=== PATIENT | male | born 1990 | race African-American/Black ===

== ENCOUNTER 2020-09-13 03:01 | Inpatient (IN) | payer SELFPAY ==
[~2020-09-13] VITALS: Ht 177.8 cm; Wt 68.1 kg
[2020-09-13] MEDS ORDERED: SODIUM CHLORIDE 0.9% 1,000 ML IV ONE (03:30)
[2020-09-13] MEDS ORDERED: CALCIUM GLUCONATE 100MG/ML 10ML VIAL IV ONE (03:30)
[2020-09-13 04:14] LABS: BASOPHILS % 0.3 % (0.0-2.0); EOSINOPHILS % 0.2 % (0.0-5.0); HEMATOCRIT. 44.8 % (42.0-52.0); HEMOGLOBIN. 14.4 g/dL (14.0-18.0); LYMPHOCYTES % 13.7 % (20.0-50.0); MEAN CORPUSCULAR HEMOGLOBIN 28.4 pg (28.0-32.0); MEAN CORPUSCULAR VOLUME 88.1 fL (80.0-94.0); NEUTROPHILS % 82.8 % (40.0-76.0); RED BLOOD CELL COUNT 5.08 mill/uL (4.7-6.1); RED CELL DISTRIBUTION WIDTH 13.7 % (11.6-14.6)
[2020-09-13 04:20] LABS: CHLORIDE 103 mEq/L (98-107)
[2020-09-13 04:24] LABS: ETHANOL BLOOD 26 mg/dL
[2020-09-13] MEDS ORDERED: DEXTROSE 50% WATER 50ML SYRINGE IV NR (04:45)
[2020-09-13 05:00] LABS: PLATELET 161 x1000/uL (130-400)
[2020-09-13] MEDS ORDERED: SODIUM CHLORIDE 0.9% 1000ML BAG (SEPSIS BOLUS) IV ONE (05:00)
[2020-09-13] MEDS ORDERED: DEXT 5%/0.9% NACL 1,000 ML IV ONE (05:15)
[2020-09-13] MEDS ORDERED: POTASSIUM CHLORIDE 20MEQ TABLET SR PO NR (06:00)
[2020-09-13 06:03] LABS: CLARITY URINE CLEAR (CLEAR); COLOR URINE YELLOW (YELLOW); KETONES URINE 2+ (NEGATIVE); LEUKOCYTE ESTERASE URINE NEGATIVE (NEGATIVE); NITRITE URINE NEGATIVE (NEGATIVE); OCCULT BLOOD URINE NEGATIVE (NEGATIVE); PROTEIN URINE NEGATIVE (NEGATIVE); SPECIFIC GRAVITY URINE 1.022 (1.005-1.030)
[2020-09-13 06:16] LABS: *AMPHETAMINES SCREEN URINE NEGATIVE (NEGATIVE); *BARBITURATES SCREEN URINE NEGATIVE (NEGATIVE); *BENZODIAZEPINES SCREEN URINE NEGATIVE (NEGATIVE); *COCAINE SCREEN URINE NEGATIVE (NEGATIVE)
[2020-09-13 06:17] LABS: CANNABINOID URINE SCREEN PRESUMTIVE POSITIVE (NEGATIVE); METHADONE URINE SCREEN NEGATIVE (NEGATIVE); OPIATES URINE SCREEN NEGATIVE (NEGATIVE); PHENCYCLIDINE URINE SCREEN NEGATIVE (NEGATIVE)
[2020-09-13] MEDS ORDERED: DOCUSATE SODIUM 100MG CAPSULE PO PRN (07:15)
[2020-09-13] MEDS ORDERED: MAGNESIUM/ALUMINUM HYDROXIDE/SIMETHICONE 30ML UDC PO PRN (07:15)
[2020-09-13] MEDS ORDERED: ONDANSETRON HCL 4MG/2ML INJ IV PRN (07:15)
[2020-09-13] MEDS ORDERED: KETOROLAC 15MG/ML VIAL IV PRN (07:15)
[2020-09-13] MEDS ORDERED: CLONIDINE 0.1MG TABLET PO PRN (07:15)
[2020-09-13] MEDS ORDERED: ACETAMINOPHEN 325MG TABLET PO PRN ×2 (07:15)
[2020-09-13] MEDS ORDERED: NITROGLYCERIN 0.4MG TABLET SL SL PRN (07:15)
[2020-09-13] MEDS ORDERED: GUAIFENESIN 200MG/10ML SUGAR FREE UDC PO PRN (07:15)
[2020-09-13] MEDS ORDERED: MVI, ADULT NO.1 10 ML, FOLIC ACID 1 MG, THIAMINE HCL 100 MG in SODIUM CHLORIDE 0.9% 1,0... IV SCH ×4 (07:15)
[2020-09-13] MEDS ORDERED: IPRATROPIUM/ALBUTEROL 0.5-3(2.5)MG/3ML NEB NEB PRN (07:15)
[2020-09-13 07:30] LABS: TOTAL IRON BINDING CAPACITY 325 ug/dL (250-450)
[2020-09-13 07:53] LABS: FOLIC ACID (FOLATE) SERUM > 20.00 ng/mL (>5.38)
[2020-09-13] MEDS ORDERED: DEXT 5% IV SCH (09:00)
[2020-09-13] MEDS ORDERED: THIAMINE HCL IV SCH (09:00)
[2020-09-13] MEDS ORDERED: FOLIC ACID IV SCH (09:00)
[2020-09-13] MEDS ORDERED: WATER IV SCH (09:00)
[2020-09-13] MEDS ORDERED: MULTIVITAMINS,THER W-MINERALS TABLET PO SCH (09:30)
[2020-09-13] MEDS: CHOLECALCIFEROL (D3) 1000 UNIT TABLET PO SCH (09:30)
[2020-09-13] MEDS: ASCORBIC ACID 500 MG TABLET PO SCH ×2 (09:30→21:55)
[2020-09-13] MEDS: ZINC SULFATE 220 MG ( 50 ) CAPSULE PO SCH (09:30)
[2020-09-13] MEDS: FAMOTIDINE 20MG TABLET PO SCH ×2 (09:30→21:55)
[2020-09-13 09:57] VITALS: BP 98/46
[2020-09-13 12:00] VITALS: BP 116/62
[2020-09-13] MEDS ORDERED: POTASSIUM CHLORIDE 20MEQ TABLET SR PO SCH (12:00)
[2020-09-13 16:00] VITALS: BP 123/75
[2020-09-13] MEDS ORDERED: IOHEXOL-350 100 ML BOTTLE ONE (19:03)
[2020-09-13 20:00] VITALS: BP 120/71
[2020-09-13] MEDS ORDERED: ZOLPIDEM TARTRATE 5MG TABLET PO PRN (20:00)
[2020-09-14] VITALS: BP 119/76
[2020-09-14 04:00] VITALS: BP 106/64
[2020-09-14 06:46] LABS: BASOPHILS % 0.1 % (0.0-2.0); EOSINOPHILS % 0.3 % (0.0-5.0); HEMATOCRIT. 41.4 % (42.0-52.0); HEMOGLOBIN. 13.9 g/dL (14.0-18.0); LYMPHOCYTES % 19.3 % (20.0-50.0); MEAN CORPUSCULAR HEMOGLOBIN 29.2 pg (28.0-32.0); MEAN CORPUSCULAR VOLUME 86.8 fL (80.0-94.0); MEAN PLATELET VOLUME 10.4 fl (7.4-10.4); MONOCYTES % 4.5 % (2.0-8.0); NEUTROPHILS % 75.8 % (40.0-76.0); PLATELET 193 x1000/uL (130-400); RED BLOOD CELL COUNT 4.77 mill/uL (4.7-6.1); RED CELL DISTRIBUTION WIDTH 13.8 % (11.6-14.6)
[2020-09-14 06:56] LABS: CHLORIDE 106 mEq/L (98-107)
[2020-09-14 07:08] LABS: PHOSPHORUS 2.8 mg/dL (2.5-4.9)
[2020-09-14 08:00] VITALS: BP 116/52
[2020-09-14] MEDS: FAMOTIDINE 20MG TABLET PO SCH (09:09)
[2020-09-14] MEDS: ASCORBIC ACID 500 MG TABLET PO SCH (09:09)
[2020-09-14] MEDS: CHOLECALCIFEROL (D3) 1000 UNIT TABLET PO SCH (09:09)
[2020-09-14] MEDS: ZINC SULFATE 220 MG ( 50 ) CAPSULE PO SCH (09:09)
[2020-09-14 09:36] VITALS: BP 109/61
== END 2020-09-14 11:00 | disposition home or self-care (01) | DRG 424 ==
LOC: ER 03:01 → 7WST 05:39 → ENRESERV 07:06 → 8WST 22:46
PROVIDERS: ADMIT Internal Medicine; ATTEND Internal Medicine
DX: E16.2 Hypoglycemia, unspecified (principal); E87.6 Hypokalemia; F10.10 Alcohol abuse, uncomplicated; Z20.822 Contact with and (suspected) exposure to COVID-19; F12.90 Cannabis use, unspecified, uncomplicated; F17.210 Nicotine dependence, cigarettes, uncomplicated; R74.01 Elevation of levels of liver transaminase levels; F19.10 Other psychoactive substance abuse, uncomplicated; Z71.51 Drug abuse counseling and surveillance of drug abuser; Z79.1 Long term (current) use of non-steroidal anti-inflammatories (NSAID); Z79.899 Other long term (current) drug therapy
CPT/HCPCS: 36415; 71045; 71275; 80053; 80305; 80320; 81003; 82746; 82962; 83036; 83540; 83550; 83615; 83735; 84100; 84145; 85025; 85379; 87426; 93005; 96374; 99285; J0610; J3411; J3490; J7030; J7060; Q9967; U0003; G0480